=== PATIENT | male | born 1965 | race Caucasian/White ===

== ENCOUNTER 2020-05-21 17:18 | Emergency (ER) | payer BC ==
[~2020-05-21] VITALS: Ht 177.8 cm; Wt 104.3 kg
[~2020-05-21 17:18] MED LIST: ADVIL; FLEXERIL; Hydrochlorothia25 MG PO; Lopressor 50 mg50 MG PO; OXYACE5T PO; Prinivil10 MG PO; ROBITUSSIN
== END 2020-05-21 17:43 | disposition home or self-care (01) ==
LOC: ER 17:18
DX: I82.512 Chronic embolism and thrombosis of left femoral vein (principal); F17.220 Nicotine dependence, chewing tobacco, uncomplicated; Z88.5 Allergy status to narcotic agent; Z79.899 Other long term (current) drug therapy; Z87.442 Personal history of urinary calculi
CPT/HCPCS: 99282